=== PATIENT | female | born 1990 ===

== ENCOUNTER 2025-02-15 08:32 | Emergency (ER) | payer MEDICAID, OTHER ==
[~2025-02-15] VITALS: Ht 167.6 cm; Wt 87.6 kg
--- NOTE | 2025-02-15 09:57 | ED.PDOC ---
Eye-HPI HPI Comments 34 y.o female presents to the ED for a chief complaint of left eye pain as sociated with redness that started 12 days ago. Patient reports increased irritation with crust build up when waking up. Patient denies any discharge or recent eye injuries. Patient has been experiencing allergies and recently recovering from flu like symptoms. No other complaint noted. Chief Complaint: Eye Problem Time Seen by MD: 09:54 Reviewed Notes: Nurses Notes, Medications, Allergies Allergies: Coded Allergies: NO KNOWN ALLERGIES (Verified , 07/28/11) Information Source: Patient Mode of Arrival: Ambulatory Duration: Since onset Eye Location: Left Lids: Tender Associated signs and symptoms: None Past Medical History PAST MEDICAL HISTORY: Denies Surgical History: Hysterectomy [employer] History: Endometriosis Family History Family History: Reviewed,noncontributory to illness Social History Smoker: Non-Smoker Alcohol: Denies ETOH Use Drugs: Marijuana Lives In: Home Constitutional: denies: chills, diaphoresis, fatigue, fever, malaise, sweats, weakness, others EENTM: reports: eye pain, eye redness; denies: blurred vision, double vision, ear bleeding, ear discharge, ear drainage, ear pain, ear ringing, hearing loss, mouth pain, mouth swelling, nasal discharge, nose bleeding, nose congestion, nose pain, photophobia, tearing, throat pain, throat swelling, voice changes, others Respiratory: denies: cough, hemoptysis, orthopnea, SOB at rest, shortness of breath, SOB with excertion, stridor, wheezing, others Cardiovascular: denies: chest pain, dizzy spells, diaphoresis, Dyspnea on exertion, edema, irregular heart beat, left arm pain, lightheadedness, palpitations, PND, syncope, others Gastrointestinal: denies: abdomen distended, abdominal pain, blood streaked bowels, constipated, diarrhea, dysphagia, difficulty swallowing, hematemesis, melena, nausea, poor appetite, poor fluid intake, rectal bleeding, rectal pain, vomiting, others Genitourinary: denies: abnormal vagina bleeding, burning, dyspareunia, dysuria, flank pain, frequency, hematuria, incontinence, pain, , vagina discharge, urgency, others Neurological: denies: dizziness, fainting, headache, left sided numbness, left sided weakness, numbness, paresthesia, pre-existing deficit, right sided numbness, right sided weakness, seizure, speech problems, tingling, tremors, weakness, others Musculoskeletal: denies: back pain, gout, joint pain, joint swelling, muscle pain, muscle stiffness, neck pain, others Integumetry: denies: bruises, change in color, change in hair/nails, dryness, laceration, lesions, lumps, rash, wounds, others Allergic/Immunocompromised: denies: Difficulty Healing, Frequent Infections, Hives, Itching, others Hematologic/Lymphatic: denies: anemia, blood clots, easy bleeding, easy bruising, swollen glands, others Endocrine: denies: excessive hunger, excessive sweating, excessive thirst, excessive urination, flushing, intolerance to cold, intolerance to heat, unexplained weight gain, unexplained weight loss, others Psychiatric: denies: anxiety, bipolar disorder, depression, hopeless, panic disorder, schizophrenia, sleepless, suicidal, others All Other Systems: Reviewed and Negative Physical Exam General Appearance: No Apparent Distress, Normal HEENT: Normal ENT Inspection, PERRL/EOMI, Other (Acute conjunctivitis left started to three days) Neck: Full Range of Motion, Non-Tender, Normal, Normal Inspection Respiratory: Chest Non-Tender, Lungs Clear, No Accessory Muscle Use, No Respiratory Distress, Normal Breath Sounds Cardiovascular: No Edema, No JVD, No Murmur, No Gallop, Normal Peripheral Pulses, Regular Rate/Rhythm Breast Exam: Deferred Gastrointestinal: No Organomegaly, Non Tender, No Pulsatile Mass, Normal Bowel Sounds, Soft Genitalia: Deferred Pelvic: Deferred Rectal: Deferred Extremities: No calf tenderness, Normal capillary refill, Normal inspection, Normal range of motion, Non-tender, No pedal edema Neurologic: Alert, 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 Was a procedure done?: No EENT DIFF Eye: Conjunctivitis, Allergic, Bacterial, Viral Ear: N/A Nose: N/A Mouth: N/A Sore Throat: N/A X-Ray, Labs, Meds, VS Vital Signs Date Time Temp Pulse Resp B/P (MAP) Pulse Ox O2 Delivery O2 Flow Rate FiO2 02/15/25 08:42 97.5 70 17 112/81 (91) 97 97.5 X-Ray, Labs, Meds, VS Comment Course in the emergency department uneventful patient came in complaining of left eye red inflamed and closed when she wakes up in the morning with a lots of discharge Patient has left conjunctivitis and will be treated with a Maxitrol Need to put the drops both to both eyes Time of 1ST Reevaluation: 11:00 Reevaluation 1ST: Unchanged Time of 2ND Reevaluation: 10:01 Reevaluation 2ND: Unchanged Consultation: PCP Patient Education/Counseling: Diagnosis, Treatment, Prognosis, Need For Follow Up Family Education/Counseling: Diagnosis, Treatment, Prognosis, Need For Follow Up, No Family Present SEPSIS Sepsis Screen Date sepsis recognized/suspect: Feb 15, 2025 Time Sepsis recognized/suspect: 841 Recent Procedure: No On Antibiotic Therapy: No Respiratory Rate >20: No Heart Rate >90: No Temp<36 C (96.8 F) or >38.3 C: No SBP <90 or MAP <65 mmHG: No New Acute Mental Status Change: No Is the patient on CPAP, BIPAP,: No Vital Signs Date Time Temp Pulse Resp B/P (MAP) Pulse Ox O2 Delivery O2 Flow Rate FiO2 02/15/25 08:42 97.5 70 17 112/81 (91) 97 97.5 Departure 1 Departure Time of Disposition: 10:02 Impression: Primary Impression: Acute conjunctivitis, left eye Qualified Codes: H10.32 - Unspecified acute conjunctivitis, left eye Disposition: 01 HOME / SELF CARE / HOMELESS Condition: Good Additional Instructions: Use drop to both eyes until clear e-Prescriptions [id number] (MAXITROL 0.1% OPTHALMIC SUSPENSION) [address] 1 DROP OP TID for 5 Days, #5 DROP Prov: ORVILLE LITTLE MD 02/15/25 Discharged With: Self Critical Care Note Critical Care Time?: No Stability Stability form required: No I personally scribed for ORVILLE LITTLE MD ([email or web address]) on 02/15/25 at 09:57. Electronically submitted by Meredith Petty ([facility]). ORVILLE LITTLE MD Feb 15, 2025 09:57
[2025-02-15] MEDS ORDERED: MAX5OPS OP (10:06)
[2025-02-15 10:23] VITALS: BP 141/90; PULSE 56; RESP 15; TEMP 98.2; O2SAT 98
== END 2025-02-15 10:29 | disposition home or self-care (01) ==
LOC: ER 08:32
DX: H10.32 Unspecified acute conjunctivitis, left eye (principal); Z90.710 Acquired absence of both cervix and uterus